=== PATIENT | male | born 1945 | race Caucasian/White ===

== ENCOUNTER 2020-10-17 12:36 | Inpatient (IN) | payer MEDICARE, BC ==
[~2020-10-17] VITALS: Ht 172.7 cm; Wt 68.0 kg
[~2020-10-17 12:36] MED LIST: ASPIRIN325 PO; CARVEDILOL3.125 MG PO; CLONAZEPAM 1 MG1 M1 PO; COMBIVENT INH; LOSARTAN POTASS50 MG PO; PAMELOR25 MG PO; PREDNISONE 10 M10 M1 PO; PULMICORT1 MG/2 ML IH
[2020-10-17 12:48] VITALS: BP 146/80
[2020-10-17 13:16] LABS: ABSOLUTE BASOPHILS 0.1 thou/uL (0.0-0.2); ABSOLUTE EOSINOPHILS 0.1 thou/uL (0.0-0.7); ABSOLUTE LYMPHOCYTES 1.7 thou/uL (0.8-5.3); ABSOLUTE MONOCYTES 1.2 thou/uL (0.0-1.2); ABSOLUTE NEUTROPHILS 12.2 thou/uL (1.6-8.1); BASOPHILS 0.9 %; EOSINOPHILS 0.8 %; HEMATOCRIT 43.8 % (42.0-52.0); HEMOGLOBIN 13.9 gm/dL (14.0-18.0); LYMPHOCYTES 10.8 %; MCH 28.8 pg (26.0-34.0); MCHC 31.7 g/dL (28.0-37.0); MCV 91.1 fL (80.0-100.0); MPV 9.8 fl. (7.2-11.1); NUCLEATED RBCS 0 /100WBC; PLATELET COUNT* 254 thou/uL (150-400); POLYS 79.5 %; RBC 4.81 mil/uL (4.50-6.00); RDW-CV 14.4 % (10.5-14.5); WBC 15.4 thou/uL (4.0-11.0)
[2020-10-17 13:21] LABS: BE 2.4 mmol/L (-2 to +3); PCO2 47.9 mmHg (35.0-45.0); pH 7.387 (7.340-7.450)
[2020-10-17 13:23] LABS: PO2 288.9 mmHg (75.0-100.0)
[2020-10-17 13:28] LABS: CALCIUM 9.6 mg/dL (8.5-10.1); CREATININE 2.5 mg/dL (0.6-1.3); POTASSIUM 5.4 mmol/L (3.5-5.1)
[2020-10-17 13:32] LABS: INR 1.1; PROTIME 11.8 Seconds (9.20-11.50)
[2020-10-17 13:35] LABS: URINE BLOOD NEGATIVE (Negative); URINE CLARITY CLEAR; URINE COLOR YELLOW; URINE GLUCOSE-RANDOM NEGATIVE (Negative); URINE KETONES NEGATIVE (Negative); URINE LEUKOCYTES-REFLEX NEGATIVE (Negative); URINE NITRITE-REFLEX NEGATIVE (Negative); URINE PROTEIN 1+ (Negative); URINE SPECIFIC GRAVITY >= 1.030 (1.005-1.030)
[2020-10-17 13:39] LABS: ICTOTEST (BILI CONFIRMATORY) Negative (Negative); URINE BILIRUBIN 1+ (Negative)
[2020-10-17 13:52] LABS: ALBUMIN 3.1 g/dL (3.4-5.0); TOTAL BILIRUBIN 0.4 mg/dL (<0.1-1.0); TOTAL PROTEIN 8.2 g/dL (6.4-8.2)
--- NOTE | 2020-10-17 14:44 | EKG ---
[place] [address] ELECTROCARDIOGRAM REPORT Name: LETTY RODRIGUEZ Room: [place] [address] ADM IN [facility]#: [id number] Admission: 10/17/20 Attend Phys: Conchita Hsu Discharge: Date of : 41 Date of Service: 10/17/20 1242 Report #: [id number] THIS REPORT FOR: //name// [facility] ED Test Date: 2020-10-17 Test Time: 12:42:09 Pat Name: LETTY RODRIGUEZ Department: Room: [facility] Gender: M Import Coordinator: SHELLY : 1945 Requested By: Corby Carnes Order Number: [id number] MD: Aleks Hernandez Measurements Intervals Correll Rate: 120 P: 83 MN: 161 QRS: 63 QRSD: 94 T: 85 QT: 305 QTc: 431 Interpretive Statements Sinus tachycardia Nonspecific T abnormalities, lateral leads No previous ECG available for comparison Electronically Signed On 10-17-2020 14:43:44 [employer] by Aleks Hernandez [email or web address] <ELECTRONICALLY SIGNED> By: Aleks Hernandez MD, FAC 10/17/20 1443 1242 1242 Aleks Hernandez MD, [facility] /EPI
[2020-10-17 21:07] VITALS: BP 100/58
[2020-10-17 21:08] VITALS: BP 136/73
--- NOTE | 2020-10-18 01:54 | NUR ---
ALERT AND ORIENTED X 3-4 WITH FORGETFULNESS MALE PATIENT ADMITTED TO ROOM 220 BY CART FROM ER IN STABLE CONDITION. SEPSIS PROTOCOL WAS INITIATED IN ER. VITAL SIGNS AND URINE OUTPUT NOW WITHIN NORMAL LIMITS. PHOTOS OF IMPARIED SKIN INTEGRITY TAKEN OF SACRUM AND PENIS. PATIENT ASKED TO REMOVE DENTURES AND DENTURES BRUSHED AND MOUTH SCRUBBED. PRIOR TO THIS MOUTH CLEANING IT WAS BUCKNER RED AND SO DRY THAT PATIENT HAD DIFFICULTY SWALLOWING. DIFFICULT TO SEE BUT APPEARS TO HAVE SOME WHITISH PATCHES AT ROOF OF MOUTH. LIP DRY AND SMALL CRACKS AT THE CORNERS OF HIS MOUTH. MOISTURIZER APPLIED. SMALL BM DURING ASSESSMENT. NEPHROLOGY CONSULT AM. FALL AND SKIN PROTOCOL IN PLACE. CONTINUE TO MONITOR. ADMISSION HISTORY AND ASSESSMENT WAS COMPLETED WHILE IN ER.
[2020-10-18 04:12] LABS: HEMATOCRIT 32.2 % (42.0-52.0); MCH 29.1 pg (26.0-34.0); MCV 91.1 fL (80.0-100.0); MPV 9.8 fl. (7.2-11.1); RBC 3.53 mil/uL (4.50-6.00); RDW-CV 14.4 % (10.5-14.5); WBC 11.8 thou/uL (4.0-11.0)
[2020-10-18 04:43] LABS: HEMOGLOBIN 10.3 gm/dL (14.0-18.0)
[2020-10-18 04:46] LABS: ALBUMIN 2.2 g/dL (3.4-5.0); CALCIUM 7.9 mg/dL (8.5-10.1); CREATININE 1.6 mg/dL (0.6-1.3); POTASSIUM 4.8 mmol/L (3.5-5.1); TOTAL BILIRUBIN 0.3 mg/dL (<0.1-1.0); TOTAL PROTEIN 6.1 g/dL (6.4-8.2)
--- NOTE | 2020-10-18 05:34 | NUR ---
PATIENT CONTINUED TO BE ALERT AND ORIENTED X 3-4 THROUGHOUT THE NIGHT. FORGETFUL AT TIME AND WOULD ASK THE SAME QUESTIONS. CALLED APROPRIATELY WITH CALL LIGHT FOR NURSE ASSIST TO USE BED COSTELLO OR STATE THAT BOWELS WERE MOVING. HAD SOME SMALL MIXED STOOL FIRST LIQUID AND THEN A SMALL FORMED AND FINALLY EARLY AM MOD FORMED BM. ADEQUATE URINE OUTOUT FOR THE SHIFT. FALL PRECAUTIONS IN PLACE. CONTINUE TO MONITOR.
[2020-10-18 07:30] VITALS: BP 146/74
--- NOTE | 2020-10-18 16:43 | NUR ---
PT REMAINED ALERT AND FORGETFUL. Q2 TURNS COMPLETED. PT RESTING IN BED. PT DENIES ANY NEEDS. FALL RISK PRECAUTIONS IN PLACE. HOURLY ROUNDING COMPLETED.
[2020-10-18 16:50] VITALS: BP 137/60
[2020-10-18 23:43] VITALS: BP 114/57
[2020-10-19 04:19] LABS: HEMATOCRIT 28.4 % (42.0-52.0); HEMOGLOBIN 9.2 gm/dL (14.0-18.0); MCH 29.4 pg (26.0-34.0); MCHC 32.3 g/dL (28.0-37.0); MCV 90.8 fL (80.0-100.0); MPV 9.6 fl. (7.2-11.1); RBC 3.13 mil/uL (4.50-6.00); RDW-CV 14.3 % (10.5-14.5); WBC 6.9 thou/uL (4.0-11.0)
[2020-10-19 04:32] LABS: CREATININE 1.3 mg/dL (0.6-1.3); MAGNESIUM 2.2 mg/dL (1.8-2.4); POTASSIUM 4.1 mmol/L (3.5-5.1)
--- NOTE | 2020-10-19 04:57 | NUR ---
PATIENT ALERT/ORIENTED X4; CONFUSED/FORGETFUL AND YELLING OUT FOR STAFF AT BEGINNING OF NIGHT. PT WITH SEGOVIA TO DEPENDENT DRAIN. PT ON O2 @ 2 LITERS PER [employer]. CANNULA. PT WITH SACRAL WOUND. PT WITH 1+ EDEMA ON LOWER EXTREMITIES. PT WITH SALINE LOCK IN LT AC. FREQUENTLY USED ITEMS AND CALL LIGHT WITHIN REACH. SIDERAILS UPX3 AND BED ALARM ON. WILL CONTINUE TO MONITOR.
[2020-10-19 08:00] VITALS: BP 103/51
[2020-10-19 16:32] VITALS: BP 117/47
[2020-10-20 04:00] VITALS: BP 133/64
[2020-10-20 04:12] LABS: CALCIUM 8.2 mg/dL (8.5-10.1); CREATININE 1.3 mg/dL (0.6-1.3); MAGNESIUM 2.2 mg/dL (1.8-2.4); POTASSIUM 4.5 mmol/L (3.5-5.1)
--- NOTE | 2020-10-20 05:33 | NUR ---
PATIENT SLEPT WELL DURING THIS SHIFT. PT ABLE TO TAKE PILLS WITH WATER WITH NO PROBLEMS. PT IS ALERT/ORIENTED X4, FORGETFUL BUT BECOMES VERY CONFUSED DURING THE NIGHT. PT WITH SEGOVIA TO DEPENDENT DRAIN WITH YELLOW URINE. PT ON O2 @ 3 LITERS PER [place]. PT DENIES NEEDS AT THIS TIME. WILL CONTINUE TO MONITOR.
[2020-10-20 08:10] VITALS: BP 138/68
--- NOTE | 2020-10-20 10:06 | NUR ---
CM SPOKE TO THE PT TO COMPLETE CM ASSESSMENT. PT IS KNOWN TO THIS CM FROM PREVIOUS ADMISSION. PT IS ALERT BUT FORGETFUL. PT RESIDES AT HOME WITH SPOUSE. PT USES HOME OXYGEN AT HOME AT 3L PROVIDED BY [facility]. PT IS CURRENT WITH [facility] AND THEY ARE ARE TO RESUME HH SERVICES FOR PT AT D/C. PT HAS 0 HX OF SNF. PT IS ALSO CURRENTLY ON-SERVICE WITH [facility] AND THEY QUESTION IF PT MIGHT BENEFIT FROM SNF PLACEMENT AT D/C THE PT HAS NEED LIFT ASSIST AT HOME FREQUENTLY IN THE PAST 2 WEEKS. CM WILL REMAIN AVAILABLE TO ASSIST AND FOLLOW NEEEDED.
--- NOTE | 2020-10-20 11:28 | NUR ---
WOUND NURSE: PATIENT SEEN TO ADDRESS WOUND ON PENIS WHICH MEASURES 1.0 X 1.8 X 0.2 CM. PATIENT REPORTING HE OBTAINED THIS LESION WHEN HE WAS TRYING TO PULL OUT HIS INFLATED CATHETER. THER IS WILLIAM BLOOD IN HIS CATHETER BAG, AND NURSE, LAURENCE, REMOVED CATHETER AND HE STARTED BLEEDING FROM THE URINARY MEATUS. PRESSURE APPLIED AND THE BLEEDING SUBSIDED. LAURENCE CALLED DR ONEILL. CLEANSED WITH SOAP AND WATER, RINSED, THEN PATTED DRY. APPLIED OPTIFOAM GENTLE AG (CUT TO FIT) TO THE AFFECTED AREA AND SECURED WITH TAPE, PAYING ATTENTION NOT TO RESTRICT CIRCULATION WITH SECURING THE DRESSING. PATIENT DOES NOT HAVE OPEN WOUND BUT HAS SMALL STAGE 1 PRESSURE INJURY ON LT BUTTOCK. PATIENT IS NO TURN SCHEDULE. MOISTURE BARRIER CREAM AND OFFLOADING Q 2 H RECOMMENDED NURSING INTERVENTION. PATIENT INSTRUCTED ON THIS AND HE STATES HE UNDERSTANDS.
[2020-10-20 12:17] LABS: HEMATOCRIT 32.4 % (42.0-52.0); HEMOGLOBIN 10.2 gm/dL (14.0-18.0)
[2020-10-20 16:01] VITALS: BP 134/69
--- NOTE | 2020-10-20 17:15 | NUR ---
PATIENT RESTING IN BED. PATIENT HAS DENIED ANY PAIN. PATIENT WORKED WITH PHYSICAL THERAPY THIS AFTERNOON. PATIENT WALKED TO [place] BUT WAS SHORT OF AIR. OXYGEN IS ON AT 2L/NC. PATIENT STATES HE WOULD LIKE TO GO HOME TOMORROW. PATIENT DENIES ANY NEEDS AT THIS TIME. CALL LIGHT WITHIN REACH.
[2020-10-20 20:01] LABS: HEMOGLOBIN 9.9 gm/dL (14.0-18.0)
[2020-10-21] VITALS (7 sets, daily range): BP systolic 95–142; BP diastolic 49–72
--- NOTE | 2020-10-21 04:58 | NUR ---
PATIENT IS ALERT/ORIENTED X4, CONFUSED AND FORGETFUL. PT INCONTINENT OF BOWEL AND BLADDER. PT TURNED Q2H. PT WITH TEAR ON SHAFT OF PENIS. PT DENIES PAIN/NAUSEA DURING THIS TIME. FREQUENTLY USED ITEMS AND CALL LIGHT WITHIN REACH. SIDERAILS UPX3 AND BED ALARM ON. WILL CONTINUE TO MONITOR.
[2020-10-21 07:18] LABS: HEMATOCRIT 29.4 % (42.0-52.0); HEMOGLOBIN 9.5 gm/dL (14.0-18.0); MCH 28.8 pg (26.0-34.0); MCHC 32.4 g/dL (28.0-37.0); MCV 88.9 fL (80.0-100.0); MPV 9.7 fl. (7.2-11.1); RBC 3.31 mil/uL (4.50-6.00); RDW-CV 14.2 % (10.5-14.5); WBC 9.6 thou/uL (4.0-11.0)
[2020-10-21 07:30] LABS: CALCIUM 8.3 mg/dL (8.5-10.1); CREATININE 1.3 mg/dL (0.6-1.3); MAGNESIUM 2.4 mg/dL (1.8-2.4); POTASSIUM 3.6 mmol/L (3.5-5.1)
[2020-10-21] MEDS ORDERED: LEVOFLOXACIN500 MG PO (07:49)
[2020-10-21] MEDS ORDERED: PREDNISONE 10 M10 M1 PO (07:49)
--- NOTE | 2020-10-21 10:15 | NUR ---
PT.HAS DISCHARGE ORDERS TO RETURN HOME WITH AND HOME HEALTH. NOTIFIED [facility]. FAXED H&P,WOUND NURSE NOTE AND DISCHARGE SUMMARY TO [facility] [phone]. THEY WILL RESUME CARE TOMORROW.
--- NOTE | 2020-10-21 13:52 | NUR ---
PT GIVEN DISCHARGE INFORMATION. IV REMOVED. PT BELONGINGS GATHERED. DRESSING CHANGED AND PICS TAKEN. FALL RISK PRECAUTIONS IN PLACE. HOURLY ROUNDING COMPLETED. Q2 TURNS COMPLETED. PT LEFT VIA WHEELCHAIR WITH NURSING STAFF TO HOME WITH HOME HEALTH.
--- NOTE | 2020-10-22 09:47 | CON ---
[address] [address] CONSULTATION Name: LETTY RODRIGUEZ Room: [address] IN M.R.#: [id number] Admission: 10/17/20 Attend Phys: Jacques Chappell Discharge: 10/21/20 Date of : 41 Report #: [id number] THIS REPORT FOR: cc: Jaime Lamb MD, Jeffrey A. MD ~ Ken Ortiz MD DATE OF SERVICE: 10/18/2020 REQUESTING PHYSICIAN: Dr. Hsu. REASON FOR CONSULTATION: Acute kidney injury. HISTORY OF PRESENT ILLNESS: The patient is a 75-year-old gentleman with medical history significant for some debility and hypertension, presents to the hospital with complaints of not feeling well, had some fever. He was a little confused. Apparently, he was treated with Bactrim for his UTI. PAST MEDICAL HISTORY: History of COPD and he is on prednisone for that. On admission, his creatinine was 2.5. His urine was benign; however, he was on Bactrim prior to admission and his white count was 15.4. His chest x-ray was done showed some right lower lobe infiltrate, which was improving actually, and at home, he was also on losartan. SOCIAL HISTORY: No tobacco or alcohol abuse. FAMILY HISTORY: Noncontributory. REVIEW OF SYSTEMS: Difficult to obtain. PHYSICAL EXAMINATION: GENERAL: He is lethargic, but arousable, follows some simple commands. VITAL SIGNS: Blood pressure on admission was 91/49 and 146/74 now, heart rate 91, temperature 37.7 on admission and 36.2 now. HEENT: Pupils round. NECK: Supple. LUNGS: Decreased air movements. CARDIOVASCULAR: Regular rate. ABDOMEN: Soft. ASSESSMENT: 1. Acute kidney injury in the setting of use of Bactrim and losartan. His renal functions are improving. Creatinine came down from 2.5 to 1.6 with IV fluids [place] [address] CONSULTATION Name: LETTY RODRIGUEZ Room: [address]#: [id number] Admission: 10/17/20 Attend Phys: Jacques Chappell Discharge: 10/21/20 Date of : 41 Report #: [id number] 2. Pneumonia. 3. History of hypertension. PLAN: 1. Agree with stopping Bactrim. 2. Agree with Levaquin. 3. Continue IV fluids. 4. No ARBs or angiotensin receptor blockers. He is much better from my standpoint. I will sign off, but call me if you have any questions. <ELECTRONICALLY SIGNED> By: Ken Ortiz MD 10/22/20 0947 0927 1236Alexandr Flor Ortiz MD /LUTHER
== END 2020-10-21 13:53 | disposition home health service (06) | DRG 871 ==
LOC: M.ERS 12:36 → M.2W 14:07 → M.3W 14:07 → M.TBA-ER 14:07 → M.2W 21:08 → M.3W 10-20 08:00
PROVIDERS: Family Medicine; Internal Medicine; ADMIT Internal Medicine; ATTEND Internal Medicine
DX: A41.9 Sepsis, unspecified organism (principal); N17.0 Acute kidney failure with tubular necrosis; E43 Unspecified severe protein-calorie malnutrition; G93.41 Metabolic encephalopathy; J15.6 Pneumonia due to other Gram-negative bacteria; J96.11 Chronic respiratory failure with hypoxia; N39.0 Urinary tract infection, site not specified; R53.81 Other malaise; F44.4 Conversion disorder with motor symptom or deficit; J44.9 Chronic obstructive pulmonary disease, unspecified; S31.21XA Laceration without foreign body of penis, initial encounter; X58.XXXA Exposure to other specified factors, initial encounter; L89.159 Pressure ulcer of sacral region, unspecified stage; I10 Essential (primary) hypertension; Z20.822 Contact with and (suspected) exposure to COVID-19; Z85.46 Personal history of malignant neoplasm of prostate; Z98.42 Cataract extraction status, left eye; Z98.41 Cataract extraction status, right eye; Z79.82 Long term (current) use of aspirin; Z79.899 Other long term (current) drug therapy; Z88.1 Allergy status to other antibiotic agents; Z88.0 Allergy status to penicillin; Z88.8 Allergy status to other drugs, medicaments and biological substances; Z87.891 Personal history of nicotine dependence